=== PATIENT | male | born 1955 | race Caucasian/White ===

== ENCOUNTER → 2025-02-02 08:24 | Outpatient (REF) | payer BC, SELFPAY ==
[2025-02-02 09:34] LABS: ALT (SGPT) 37 U/L (0-50); AST (SGOT) 32 U/L (17-59); Albumin 4.2 g/dl (3.5-5.0); Alkaline Phosphatase 62 U/L (38-126); Direct Bilirubin 0.1 mg/dl (0.0-0.4); HDL Cholesterol 65 mg/dl; LDL Cholesterol, Calculated 81 mg/dl; Total Bilirubin 0.7 mg/dl (0.2-1.3); Total Cholesterol 157 mg/dl (50-199); Total Protein 6.7 g/dl (6.3-8.2); Triglyceride 56 mg/dl (10-149); Very Low Density Lipoprotein 11 mg/dl (0-30)
== END ==
LOC: REG 08:24
PROVIDERS: ATTENDING PHYSICIAN Internal Medicine Cardiovascular Disease
DX: I48.0 Paroxysmal atrial fibrillation (principal); R93.1 Abnormal findings on diagnostic imaging of heart and coronary circulation; E78.00 Pure hypercholesterolemia, unspecified; J45.909 Unspecified asthma, uncomplicated
CPT/HCPCS: 36415; 80061; 80076